=== PATIENT | male | born 1990 | race Two or more races ===

== ENCOUNTER 2021-12-21 11:20 | Emergency (ER) | payer BC, OTHER ==
[2021-12-21] MEDS ORDERED: ACETAMINOPHEN 1000 MG/100 ML BAG IVPB ONE (12:08)
[2021-12-21] MEDS ORDERED: SODIUM CHLORIDE 0.9% 500 ML INFUS.BAG IV ONE (12:08)
[2021-12-21 12:15] VITALS: BMI 41.5
[2021-12-21] MEDS ORDERED: ALBUTEROL SO4 2.5/IPRATROPIUM 0.5 INH SOL 3 ML VIAL.NEB. NEB ONE ×2 (12:36→12:41)
[2021-12-21 12:38] LABS: HEMOGLOBIN 14.2 G/dL (11.7-16.9); MCH 31.4 pg (25.7-33.7); MCHC 35.5 g/dl (32.0-35.9); MEAN CELL VOLUME 88.5 fl (80-96); MEAN PLT VOLUME 8.7 fl (7.5-11.1); PLATELET COUNT 186.7 10^3/uL (134-434); RBC 4.52 10^6/uL (4.00-5.60); RDW 13.6 % (11.9-15.9); WHITE BLOOD COUNT 14.1 10^3/uL (4.0-10.8)
[2021-12-21 12:39] LABS: INR 1.18 (0.83-1.09); PROTHROMBIN TIME (PATIENT) 13.6 SEC (9.7-13.0)
[2021-12-21 12:41] LABS: ACTIVATED PTT 30.7 SECONDS (25.2-36.5)
[2021-12-21] MEDS ORDERED: ACETAMINOPHEN INJECTION 100 ML IVPB ONE (12:41)
[2021-12-21 12:45] LABS: ALBUMIN 4.2 g/dl (3.4-5.0); BILIRUBIN,TOTAL 1.1 mg/dl (0.2-1); CALCIUM 9.6 mg/dl (8.5-10); MAGNESIUM 1.9 mg/dL (1.8-2.4); TOT PROT 7.6 g/dl (6.4-8.2)
[2021-12-21 13:17] VITALS: TEMP 98.9
[2021-12-21 16:09] VITALS: BP 127/79; PULSE 94
[2021-12-21] MEDS ORDERED: ALBUTEROL SO4 HFA INHALER IH ONE ×2 (16:23→16:33)
[2021-12-21 17:29] LABS: PLATELET ESTIMATE ADEQUATE
== END 2021-12-21 16:44 | disposition home or self-care (01) ==
LOC: FER 11:20
PROC: 3E0333Z Introduction of Anti-inflammatory into Peripheral Vein, Percutaneous Approach (ICD-10-PCS; principal; 2021-12-21)
PROC: 3E0F7GC Introduction of Other Therapeutic Substance into Respiratory Tract, Via Natural or Artificial Opening (ICD-10-PCS; 2021-12-21)
DX: R06.02 Shortness of breath (principal)
CPT/HCPCS: 0241U-QW; 36415; 71045-TC-FY; 80053; 81003; 81015; 83605; 83735; 84443; 84484; 85025; 85379; 85610; 85730; 86850; 86900; 86901; 87040; 87086; 93005; 99285-25